=== PATIENT | female | born 1995 | race American Indian/Alaskan Native ===

== ENCOUNTER 2018-02-27 16:37 | Emergency (ER) | payer OTHER ==
[2018-02-27 17:15] LABS: BASO % 0.2 % (0.0-1.0); EOS # 0.1 10^3/uL (0.0-0.50); EOS % 0.6 % (0.0-3.0); HEMATOCRIT 38.2 % (36.0-47.0); HEMOGLOBIN 12.7 g/dl (12.0-15.5); IMMATURE GRANULOCYTE % 0.2 % (0-3.0); LYMPH # 1.8 10^3/uL (1.5-6.5); LYMPH % 21.4 % (24.0-44.0); MEAN CORPUSCULAR HEMOGLOBIN 27.8 pg (27.0-33.0); MEAN CORPUSCULAR HGB CONC 33.2 g/dl (32.0-36.5); MEAN CORPUSCULAR VOLUME 83.6 fl (80.0-96.0); MONO # 0.4 10^3/uL (0.0-0.8); MONO % 5.3 % (0.0-5.0); NEUTROPHILS # 5.9 10^3/uL (1.8-7.7); NEUTROPHILS % 72.3 % (36.0-66.0); PLATELET COUNT, AUTOMATED 266 10^3/uL (150-450); RED BLOOD COUNT 4.57 10^6/uL (4.00-5.40); RED CELL DISTRIBUTION WIDTH 13.2 % (11.5-14.5); WHITE BLOOD COUNT 8.2 10^3/uL (4.0-10.0)
[2018-02-27 17:52] LABS: ANION GAP 7 MEQ/L (8-16); BLOOD UREA NITROGEN 7 MG/DL (7-18); CALCIUM LEVEL 8.8 MG/DL (8.5-10.1); CARBON DIOXIDE LEVEL 25 MEQ/L (21-32); CHLORIDE LEVEL 106 MEQ/L (98-107); CREATININE FOR GFR 0.65 MG/DL (0.55-1.30); GLOMERULAR FILTRATION RATE > 60.0 (>60); GLUCOSE, FASTING 81 MG/DL (70-100); HCG, SERUM QUANTITATIVE 122163 MIU/ML; POTASSIUM SERUM 3.8 MEQ/L (3.5-5.1); SODIUM LEVEL 138 MEQ/L (136-145)
[2018-02-27 18:36] LABS: AMORPHOUS SEDIMENT RFX SMALL (NEGATIVE); KETONE, URINE AUTO RFX TRACE mg/dL (NEGATIVE); LEUKOCYTE ESTERASE UR AUTO RFX NEGATIVE (NEGATIVE); MUCUS, URINE RFX SMALL (NEGATIVE); NITRITE, URINE AUTO RFX NEGATIVE (NEGATIVE); RBC, URINE AUTO RFX 3 /HPF (0-3); SPECIFIC GRAVITY UR AUTO RFX 1.017 (1.002-1.035); SQUAM EPITHELIAL CELL UR AURFX 2 /HPF (0-6); WBC, URINE AUTO RFX 2 /HPF (0-3)
[2018-02-27 21:13] LABS: CHLAMYDIA DNA AMPLIFICATION NEGATIVE (NEGATIVE); GC DNA AMPLIFICATION NEGATIVE (NEGATIVE)
== END 2018-02-27 20:01 | disposition home or self-care (01) ==
LOC: M ED 16:37
DX: O20.9 Hemorrhage in early pregnancy, unspecified (principal); O23.591 Infection of other part of genital tract in pregnancy, first trimester; Z3A.09 9 weeks gestation of pregnancy
CPT/HCPCS: 76801

== ENCOUNTER 2018-04-14 18:18 | Emergency (ER) | payer OTHER ==
[~2018-04-14] VITALS: Ht 160 cm; Wt 85.5 kg
[~2018-04-14 18:18] MED LIST: METR1GEL7 PV; PREN200C PO; RANI15TA PO; VITA200016 PO; ZOFR4TAB16 PO
[2018-04-14] MEDS ORDERED: ACETAMINOPHEN 325 MG TAB PO ONE (18:45)
[2018-04-14 20:02] VITALS: BP 117/72
== END 2018-04-14 20:04 | disposition home or self-care (01) ==
LOC: M ED 18:18
DX: S20.20XA Contusion of thorax, unspecified, initial encounter (principal); W19.XXXA Unspecified fall, initial encounter; Y92.019 Unspecified place in single-family (private) house as the place of occurrence of the external cause

== ENCOUNTER 2018-06-27 17:22 | Emergency (ER) | payer OTHER ==
[~2018-06-27] VITALS: Ht 162.6 cm; Wt 91.4 kg
[2018-06-27] MEDS ORDERED: ZOLO50TA PO (17:26)
[2018-06-27] MEDS ORDERED: MECL-68 PO (19:26)
[2018-06-27 19:29] VITALS: BP 105/65
[2018-06-27] MEDS ORDERED: MECLIZINE 25 MG TABLET PO ONE (19:30)
== END 2018-06-27 19:35 | disposition home or self-care (01) ==
LOC: M ED 17:22
DX: O99.352 Diseases of the nervous system complicating pregnancy, second trimester (principal); R42 Dizziness and giddiness; R11.0 Nausea; G43.909 Migraine, unspecified, not intractable, without status migrainosus; O99.342 Other mental disorders complicating pregnancy, second trimester; F32.9 Major depressive disorder, single episode, unspecified; Z88.0 Allergy status to penicillin; Z79.899 Other long term (current) drug therapy; Z3A.26 26 weeks gestation of pregnancy

== ENCOUNTER 2018-10-11 15:29 | Inpatient (IN) | payer OTHER ==
[~2018-10-11] VITALS: Ht 162.6 cm; Wt 103.0 kg
[~2018-10-11 15:29] MED LIST changes: +MECL-68 PO; +ZOLO50TA PO
[2018-10-11] MEDS ORDERED: PRENTAB9 PO (15:50)
[2018-10-11 16:02] VITALS: BP 90/55
[2018-10-11] MEDS: miSOPROStol 50 MCG 1/2 TAB (S0191) SL SCH ×2 (17:27→21:32)
[2018-10-11 17:33] LABS: HEMOGLOBIN 11.6 g/dl (12.0-15.5); MEAN CORPUSCULAR HEMOGLOBIN 27.6 pg (27.0-33.0); MEAN CORPUSCULAR HGB CONC 32.2 g/dl (32.0-36.5); MEAN CORPUSCULAR VOLUME 85.5 fl (80.0-96.0); PLATELET COUNT, AUTOMATED 181 10^3/uL (150-450); RED BLOOD COUNT 4.21 10^6/uL (4.00-5.40); WHITE BLOOD COUNT 7.1 10^3/uL (4.0-10.0)
--- NOTE | 2018-10-11 18:27 | HPE ---
DATE OF ADMISSION: 10/11/2018 HISTORY: A 23-year-old G1, P0 female at 41-2/7 weeks gestation by last menstrual period (LMP) plus ultrasound, estimated date of confinement (EDC) of 10/02/2018 presents for labor induction. She has no complications. COURSE: Patient's care has been through [facility]. She has had no complications. MEDICAL HISTORY: Noncontributory. SURGICAL HISTORY: Noncontributory. ALLERGIES: PENICILLIN. SOCIAL HISTORY: The patient denies cigarettes, alcohol, or drug use. She is in the . She and her are of descent. FAMILY HISTORY: Noncontributory. PHYSICAL EXAMINATION: Blood pressure is 90/55, pulse 88, respiratory rate 18, afebrile. She is in no apparent distress. Head and neck exam normal. Lungs clear. Heart regular rate and rhythm. Abdomen nontender, gravid. heart tones category 1, contractions irregular. Sterile vaginal exam: 1 cm, 80%, -2, posterior, soft, vertex. Extremities: Nontender. Blood type is O positive. Hepatitis B negative. RPR nonreactive. Normal diabetes screen. GBS negative. ASSESSMENT: A 23-year-old G1 at 41-2/7 weeks gestational presents for labor in duction. PLAN: Patient was admitted on 10/11/2018. Risks of induction were discussed.
[2018-10-11 18:40] VITALS: BP 102/51
[2018-10-11 19:42] VITALS: BP 100/56
[2018-10-11 22:34] VITALS: BP 113/64
[2018-10-12] VITALS (44 sets, daily range): BP systolic 72–259; BP diastolic 35–168
[2018-10-12] MEDS ORDERED: BUTORPHANOL 2 MG/ML INJ (J0595) IV ONE (01:45)
[2018-10-12] MEDS ORDERED: PROMETHAZINE INJ 25 MG/ML VIAL (J2550) IV ONE (01:45)
[2018-10-12] MEDS ORDERED: PROMETHAZINE INJ 25 MG/ML VIAL (J2550) As Ordered ONE (01:46)
[2018-10-12] MEDS ORDERED: BUTORPHANOL 2 MG/ML INJ (J0595) As Ordered ONE (01:47)
[2018-10-12] MEDS: miSOPROStol 50 MCG 1/2 TAB (S0191) SL SCH (01:51)
[2018-10-12] MEDS ORDERED: LR 1,000 ML IV ONE (06:00)
[2018-10-12] MEDS ORDERED: FENTANYL 2MCG/ML ROPIVACAINE 0.2% IN 0.9% NACL 100ML IVBAG As Ordered ONE (06:16)
[2018-10-12] MEDS ORDERED: LACTATED RINGER'S 1000 ML IV PRN (06:21)
[2018-10-12] MEDS ORDERED: diphenhydrAMINE INJ 50MG/ML VIAL (J1200) IV PRN ×2 (06:21→16:26)
[2018-10-12] MEDS ORDERED: NALOXONE INJ 0.4 MG/1 ML VIAL (J2310) IV PRN ×3 (06:21→16:26)
[2018-10-12] MEDS ORDERED: ONDANSETRON 4MG/2ML VIAL (J2405) IV PRN ×3 (06:21→17:45)
[2018-10-12] MEDS ORDERED: EPIDURAL/PCA KEYS XX PRN (06:21)
[2018-10-12] MEDS ORDERED: EPIDURAL COMMENT XX SCH (06:21)
[2018-10-12] MEDS ORDERED: REFRIGERATOR IV KEYS XX PRN (06:21)
[2018-10-12] MEDS ORDERED: FENTANYL/ROPIVACAINE/NACL BAG 100 ML EPIDURAL SCH (06:21)
[2018-10-12] MEDS: LR 1,000 ML IV SCH ×3 (06:48→10:45)
[2018-10-12] MEDS ORDERED: OXYTOCIN 30 UNITS IN 0.9% NaCl 500ML IV BAG (J2590) As Ordered ONE ×2 (07:23→14:50)
[2018-10-12] MEDS: ePHEDrine SULFATE 25 MG/5 ML(5MG/ML) SYRINGE IV PRN ×3 (07:51→08:05)
--- NOTE | 2018-10-12 08:50 | NUR ---
[facility] L&D Intrapartum Progress Note S: Received report from Dr. Haynes. Cassy is a 23 y/o G1 at 41+3 weeks gestation via L/1TUS. Admission on 11 October for late term IOL. was c/b depression; size >dates, obesity, and excessive weight gain. She is laying in lateral position with FRANCISCA infusing. She denies pain/pressure with ctx since epidural placement. Spouse is present for support. O: VSS/afebrile, normotensive A&Ox3, NAD ABD: Gravid; relaxed uterine resting tone EXT: trace edema, neg homans FHR: 145 bl, moderate variability, + accelerations, no decelerations. TOCO: ctx q3-4 min, mod intensity via palp, relaxed resting tone SCE: 7/100/-1, cephalic vtx, narrow ischial spines noted; BBOW A/P: Cassy is a 23-year-old G1, P0 female at 41-3/7 weeks gestation by last menstrual period (LMP) plus ultrasound, estimated date of confinement (EDC) of 10/02/2018, late term IOL s/p 3 doses of misoprostil. Now in active phase labor. CAT I FHR. FRANCISCA infusing for labor anesthesia. Amniotomy performed for further augmentation and moderate amount of fluid with light meconium present. Safe to proceed.
--- NOTE | 2018-10-12 12:30 | NUR ---
[facility] L&D Intrapartum Progress Note S: Cassy is a 23 y/o G1 at 41+3 weeks gestation via L/1TUS. Admission on 11 October for late term IOL. was c/b depression; size >dates, obesity, and excessive weight gain. She is laying in lateral position with FRANCISCA infusing. She denies pain but does report feeling some vaginal pressure. Spouse is present for support. O: VSS/afebrile, normotensive A&Ox3, NAD ABD: Gravid; relaxed uterine resting tone EXT: trace edema, neg homans FHR: 145 bl, moderate variability, + accelerations, rare/intermittent variable decelerations. TOCO: ctx q2-3.5 min, mod intensity via palp, relaxed resting tone SCE: 10/100/0, cephalic vtx, LOP presentation, light mec present A/P: Cassy is a 23-year-old G1, P0 female at 41-3/7 weeks gestation by last menstrual period (LMP) plus ultrasound, estimated date of confinement (EDC) of 10/02/2018, late term IOL s/p 3 doses of misoprostil. Active phase labor. CAT I FHR; occasional CAT II for variable decelerations. FRANCISCA infusing for labor anesthesia. Good cervical change since last examination. Will reposition to HF/squatting, alternating with peanut ball for 1 hour to facilitate passive descent and internal rotation. Safe to proceed.
--- NOTE | 2018-10-12 14:17 | NUR ---
[facility] L&D Intrapartum Progress Note S: Cassy is a 23 y/o G1 at 41+3 weeks gestation via L/1TUS. Admission on 11 October for late term IOL. was c/b depression; size >dates, obesity, and excessive weight gain. She is actively pushing in a semi-squatting/SF position. Spouse is present for support. O: VSS/temp 99.8 A&Ox3, NAD ABD: Gravid; relaxed uterine resting tone EXT: trace edema, neg homans FHR: 155 bl, moderate variability, + accelerations, variable decelerations during ctx while pushing TOCO: ctx q2-4 min, mod intensity via palp, relaxed resting tone SCE: 10/100/+1 cephalic vtx, OA presentation, moderate mec present A/P: Cassy is a 23-year-old G1, P0 female at 41-3/7 weeks gestation by last menstrual period (LMP) plus ultrasound, estimated date of confinement (EDC) of 10/02/2018, late term IOL s/p 3 doses of misoprostil. Second stage labor actively pushing with fair maternal effort. CAT II FHR for variable decelerations, mod variability, + accelerations. descent noted since onset of active pushing (about 40minutes ago). Will continue active pushing. Safe to proceed.
[2018-10-12] MEDS ORDERED: OXYTOCIN DRIP 30 UNITS in APPROPRIATE DILUENT 1 EA IV SCH ×2 (15:00→17:18)
[2018-10-12] MEDS ORDERED: BICITRA 30ML SOLN UDC PO ONE (15:15)
[2018-10-12] MEDS ORDERED: AZITHROMYCIN INJ 500 MG, VIAL MATE ADAPTER 1 EACH in D5W 250 ML IV ONE (15:30)
--- NOTE | 2018-10-12 15:44 | IPNPDOC ---
Text Note Date of Service The patient was seen on 10/12/18. NOTE Called by MAJ Carey in regards to Ms. Lopez. She's a 23 yo at 41+3 weeks gestation undergoing an IOL for late term gestation. She progressed to C/C/O at ~1230, and has been pushing for the last 2 hours with minimal descent. On my exam the head is at +1 station. Cassy is exhausted and does not feel able to push anymore. I recommended section for arrest of descent. We discussed all risks of surgery to include, but not limited to, bleeding requiring blood transfusion, risk of infection, risk of injury to bowel, bladder, or other structures which could require additional surgery, risk of needing a hysterectomy as a life saving maneuver to control bleeding, risk of injury to baby, and even risk of and/or maternal . She verbalized understanding of these risks and elected to proceed with c section. Consent form signed. Ancef and Azithromycin for infection prophylaxis. OR and anesthesia notified. Will proceed urgently. Penelope Gill DO VS,Robert, I+O VS, Robert, I+O Laboratory Tests 10/11/18 16:34 Red Blood Count 4.21, Mean Corpuscular Volume 85.5, Mean Corpuscular Hemoglobin 27.6, Mean Corpuscular Hemoglobin Concent 32.2, Red Cell Distribution Width 13.2 Vital Signs Date Time Temp Pulse Resp B/P (MAP) Pulse Ox O2 Delivery O2 Flow Rate FiO2 10/12/18 15:16 155 20 116/79 (91) 10/12/18 14:45 99.2 I&O- Last 24 Hours up to 6 AM 10/12/18 06:00 Intake Total 600 ml Balance 600 ml PENELOPE GILL DO Oct 12, 2018 15:43
[2018-10-12] MEDS ORDERED: METOCLOPRAMIDE INJ 10MG/2ML VIAL (J2765) IV PRN ×2 (16:26→17:45)
[2018-10-12] MEDS ORDERED: NALBUPHINE HCL 10 MG/ML AMP (J2300) IV PRN (16:26)
[2018-10-12] MEDS ORDERED: OXYTOCIN INJ 10 UNITS/ML VIAL (J2590) As Ordered ONE (16:30)
[2018-10-12] MEDS ORDERED: ONDANSETRON 4MG/2ML VIAL (J2405) As Ordered ONE (16:30)
[2018-10-12] MEDS ORDERED: SODIUM BICARBONATE 8.4% INJ 50MEQ 50 ML VIAL As Ordered ONE (16:30)
[2018-10-12] MEDS ORDERED: MORPHINE PRES-FREE INJ 10 MG/10 ML VIAL (J2274) As Ordered ONE (16:30)
[2018-10-12] MEDS ORDERED: dexameTHASONE 4 MG/ML 1ML VIAL (J1100) As Ordered ONE (16:30)
[2018-10-12] MEDS ORDERED: KETOROLAC 60 MG/2 ML VIAL (J1885) As Ordered ONE (16:30)
[2018-10-12] MEDS ORDERED: PHENYLephrine HCL 500 MCG/5 ML (100MCG/ML) SYRINGE (J2370) As Ordered ONE (17:18)
[2018-10-12 17:30] LABS: CORD GAS HCO3 A 20.1 MEQ/L; CORD GAS O2 SAT A 35.3 %; CORD GAS PCO2 A 46.4 mmHg; CORD GAS PH A 7.254 UNITS; CORD GAS PO2 A 20.9 mmHg; CORD GAS SBC A 17.7 MEQ/L; CORD GAS TCO2 A 21.5 MEQ/L
[2018-10-12] MEDS ORDERED: PROMETHAZINE 25 MG TAB PO PRN (17:30)
[2018-10-12] MEDS ORDERED: MEASLES,MUMPS,RUBELLA VACCINE INJ (MMR-II) (90707) SC SCH (17:30)
[2018-10-12] MEDS ORDERED: RHOGAM 300 MCG (1500 IU) INJ (J2790) IM SCH (17:30)
[2018-10-12 17:32] LABS: CORD GAS HCO3 V 20.8 MEQ/L; CORD GAS PCO2 V 41.3 mmHg; CORD GAS PH V 7.32 UNITS; CORD GAS PO2 V 39.8 mmHg; CORD GAS TCO2 V 22.1 MEQ/L
[2018-10-12] MEDS ORDERED: MEPERIDINE INJ 25 MG/ML VIAL (J2175) As Ordered ONE (17:35)
[2018-10-12] MEDS ORDERED: LR 1,000 ML IV SCH (17:45)
[2018-10-12] MEDS ORDERED: fentaNYL 100 MCG/2 ML INJECTION (J3010) IV PRN (17:45)
[2018-10-12] MEDS ORDERED: PERCOCET 5MG/325MG TAB PO PRN (17:45)
[2018-10-12] MEDS ORDERED: MEPERIDINE INJ 25 MG/ML VIAL (J2175) IV PRN (18:00)
[2018-10-12] MEDS ORDERED: miSOPROStol 200 MCG TAB (S0191) PR ONE (18:00)
[2018-10-12] MEDS ORDERED: METHYLERGONOVINE MALEATE 0.2 MG/ML VIAL (J2210) IM STA (18:15)
[2018-10-12] MEDS: KETOROLAC 30 MG/ML VIAL (J1885) IV SCH (23:00)
[2018-10-13 02:17] VITALS: BP 103/59
[2018-10-13] MEDS: KETOROLAC 30 MG/ML VIAL (J1885) IV SCH ×2 (05:15→11:38)
[2018-10-13 06:28] VITALS: BP 109/50
[2018-10-13 07:16] LABS: MEAN CORPUSCULAR HEMOGLOBIN 27.7 pg (27.0-33.0); MEAN CORPUSCULAR HGB CONC 32.2 g/dl (32.0-36.5); MEAN CORPUSCULAR VOLUME 86.1 fl (80.0-96.0); PLATELET COUNT, AUTOMATED 141 10^3/uL (150-450); RED BLOOD COUNT 2.67 10^6/uL (4.00-5.40); WHITE BLOOD COUNT 17.6 10^3/uL (4.0-10.0)
[2018-10-13 07:28] LABS: HEMOGLOBIN 7.4 g/dl (12.0-15.5)
[2018-10-13] MEDS: PRENATAL VITAMINS CHEWABLE TABLET PO SCH (07:49)
[2018-10-13] MEDS: PERCOCET 5MG/325MG TAB PO PRN ×3 (08:07→20:54)
--- NOTE | 2018-10-13 08:45 | IPNPDOC ---
Progress Note Date of Service: Oct 13, 2018 Day#: 1 Progress Note SUBJECT: 23yo s/p 1LTCS for arrest. Doing well. Pain controlled with pain meds. She reports dizziness with OOB and is unable to make it to the bathroom. She generally feels weak. Denies flatus but is tolerating PO well. Denies N&V. Lochia minimal. Denies CP, SOB, leg pain. OBJECTIVE: VITAL SIGNS: Within normal limits, afebrile. Alert and oriented times three. Breath sounds clear to auscultation. Heart rate: Regular rate and rhythm, no murmurs, rubs or gallops. Abdomen: Fundus firm at U-2. Soft, NTTP. Minimal lochia. ASSESSMENT: 23yo PPD#1 s/p 1LTCS c/o dizziness in setting of acute blood loss anemia PLAN: 1. Acute blood loss anemia: Hb 11.6 --> 7.3. Sx. Will transfuse 1u PRBC. Rpt CBC 4 hrs post transfusion. 2. Routine postop care 3. Encourage ambulation VS, I&O, 24H, [facility] Vital Signs/I&O Vital Signs Date Time Temp Pulse Resp B/P (MAP) Pulse Ox O2 Delivery O2 Flow Rate FiO2 10/13/18 08:07 20 10/13/18 06:28 97.9 93 109/50 (69) 96 I&O- Last 24 Hours up to 6 AM 10/13/18 05:59 Intake Total 2930 ml Output Total 3375 ml Balance -445 ml Laboratory Data 24H LABS Laboratory Tests 2 10/12/18 17:14: Cord Venous Blood pH 7.320, Cord Venous Blood PCO2 41.3, Cord Venous Blood PO2 39.8, Cord Venous Blood HCO3 20.8, Cord Venous Blood Total CO2 22.1, Cord Venous Base Excess (Actual) -5.0, Cord Venous Base Excess (Standard) 20.0, Cord Venous Blood Oxygen Saturation 79.0 10/12/18 17:15: Cord Arterial Blood pH 7.254, Cord Arterial Blood PCO2 46.4, Cord Arterial Blood PO2 20.9, Cord Arterial Blood HCO3 20.1, Cord Arterial Blood Total CO2 21.5, Cord Arterial Blood Base Excess -7.0, Cord Arterial Base Excess (Standard 17.7, Cord Arterial Bld Oxygen Saturation 35.3 10/13/18 06:41: Nucleated Red Blood Cells % (auto) 0.0 CBC/BMP Laboratory Tests 10/13/18 06:41 Red Blood Count 2.67 L, Mean Corpuscular Volume 86.1, Mean Corpuscular Hemoglobin 27.7, Mean Corpuscular Hemoglobin Concent 32.2, Red Cell Distribution Width 13.7 LEXIE SANTANA MD Oct 13, 2018 08:45
[2018-10-13] MEDS ORDERED: LIDOCAINE 2% W/EPIN INJ 20ML **PRES FREE As Ordered ONE (09:01)
[2018-10-13 14:00] VITALS: BP 90/50
[2018-10-13 15:42] LABS: HEMATOCRIT 24.1 % (36.0-47.0); HEMOGLOBIN 7.9 g/dl (12.0-15.5); MEAN CORPUSCULAR HEMOGLOBIN 28.4 pg (27.0-33.0); MEAN CORPUSCULAR HGB CONC 32.8 g/dl (32.0-36.5); MEAN CORPUSCULAR VOLUME 86.7 fl (80.0-96.0); PLATELET COUNT, AUTOMATED 140 10^3/uL (150-450); RED BLOOD COUNT 2.78 10^6/uL (4.00-5.40); WHITE BLOOD COUNT 16.1 10^3/uL (4.0-10.0)
[2018-10-13 18:02] VITALS: BP 90/66
[2018-10-13] MEDS: IBUPROFEN 800 MG TAB PO SCH (19:50)
[2018-10-13 22:00] VITALS: BP 103/53
[2018-10-14] MEDS: IBUPROFEN 800 MG TAB PO SCH ×3 (02:59→19:00)
[2018-10-14 05:55] VITALS: BP 90/53
[2018-10-14 07:13] LABS: HEMATOCRIT 22.6 % (36.0-47.0); HEMOGLOBIN 7.4 g/dl (12.0-15.5); MEAN CORPUSCULAR HEMOGLOBIN 27.4 pg (27.0-33.0); MEAN CORPUSCULAR HGB CONC 32.7 g/dl (32.0-36.5); MEAN CORPUSCULAR VOLUME 83.7 fl (80.0-96.0); PLATELET COUNT, AUTOMATED 167 10^3/uL (150-450); WHITE BLOOD COUNT 14.7 10^3/uL (4.0-10.0)
--- NOTE | 2018-10-14 07:35 | NUR ---
POD#2 S: Doing well w/o complaints. +voids, + ambulation, pain well controlled. O: vss, AF gen: well appearing, NAD ab: soft, nttp, ff incision: c/d/I ext: neg calf tenderness 14.7>--7.4/22.6--<167 A/P: POD#2 s/p 1LTCS c/b received 1unit PRBC - recovering in stable condition -continue routine / postop care -may consider additional unit is symptomatic anemia -discharge plans for tomorrow Carol Ann Castaneda MD
--- NOTE | 2018-10-14 10:09 | IPNPDOC ---
Progress Note Date of Service: Oct 14, 2018 Progress Note Patient seen this AM. Cassy overall is doing well, but she still feels lightheaded and weak with ambulation. HR normal and UO good. H/H stable, but still low. I recommended transfusion of one more unit of PRBCs for symptomatic anemia. If remains stable will likely discharge home tomorrow. All patient questions answered. DO Jairo VS, I&O, 24H, [facility] Vital Signs/I&O Vital Signs Date Time Temp Pulse Resp B/P (MAP) Pulse Ox O2 Delivery O2 Flow Rate FiO2 10/14/18 05:55 97.9 82 18 90/53 (65) 10/13/18 22:00 97 I&O- Last 24 Hours up to 6 AM 10/14/18 06:00 Output Total 2300 ml Balance -2300 ml Laboratory Data 24H LABS Laboratory Tests 2 10/13/18 15:09: Nucleated Red Blood Cells % (auto) 0.0 10/14/18 06:40: Nucleated Red Blood Cells % (auto) 0.0 CBC/BMP Laboratory Tests 10/13/18 15:09 Red Blood Count 2.78 L, Mean Corpuscular Volume 86.7, Mean Corpuscular Hemoglobin 28.4, Mean Corpuscular Hemoglobin Concent 32.8, Red Cell Distribution Width 13.6 10/14/18 06:40 Red Blood Count 2.70 L, Mean Corpuscular Volume 83.7, Mean Corpuscular Hemoglobin 27.4, Mean Corpuscular Hemoglobin Concent 32.7, Red Cell Distribution Width 14.1 PENELOPE GUY DO Oct 14, 2018 10:09
[2018-10-14] MEDS: PRENATAL VITAMINS CHEWABLE TABLET PO SCH (11:11)
[2018-10-14] MEDS: PERCOCET 5MG/325MG TAB PO PRN ×2 (11:15→18:42)
--- NOTE | 2018-10-14 17:12 | RO ---
DATE OF PROCEDURE: 10/12/2018 PREPROCEDURE DIAGNOSIS: Arrest of descent. POSTPROCEDURE DIAGNOSIS: Arrest of descent. PROCEDURE: Primary low transverse section. SURGEON: Dr. Dorian Gill RUBBER MIXER: Dr. Davide Maki whose assistance with exposure, retraction, visualization, and delivery of the infant was vital. ANESTHESIA: Epidural. FLUIDS: 2200 mL of lactated Ringer's. URINE OUTPUT: 250 mL. ESTIMATED BLOOD LOSS: 1500 mL. COMPLICATIONS: None. ANTIBIOTICS: 2 grams of Ancef and 500 mg of azithromycin. OPERATIVE FINDINGS: Viable male fetus, found and delivered in left occiput transverse (LOT) position with a footling cord. scores were 9 and 10. weight was 8 pounds 5 ounces or 3760 grams. DETAILED PROCEDURE DESCRIPTION: The risks, benefits, indications, and alternatives of the procedure were reviewed with the patient and informed consent was obtained. The patient was taken to the operating room where epidural anesthesia was found to be adequate. She was then prepped and draped in the usual sterile fashion in the dorsal supine position with a leftward tilt. A surgical time-out was then performed in which the patient's identify and planned procedure were verified with the operative team. A Pfannenstiel skin incision was then made with a scalpel and carried through to the underlying layer of fascia using the Bovie. The fascia was incised in the midline and the incision was extended laterally with Foreman scissors. The superior aspect of the fascial incision was grasped with Estela clamps, elevated, and the underlying rectus muscles were dissected off with a scalpel. Attention was then turned to the inferior aspect of this incision, which in a similar fashion was grasped, tented up with Estela clamps, and the rectus muscles were dissected off with the Foreman scissors. The rectus muscles were then in the midline. The peritoneum was identified and entered digitally. The peritoneal incision was then extended horizontally and superiorly with good visualization of the bladder. A bladder blade was then inserted into the abdomen. The vesicouterine peritoneum was then identified and entered sharply with the scalpel. This incision was then extended laterally and the bladder flap was created digitally. Next, the lower uterine segment was incised in a transverse fashion with a scalpel. The uterine incision was then extended manually. Light meconium-stained fluid was noted upon entry into the uterus. The was found in the cephalic LOT position. The 's head was then delivered atraumatically through the hysterotomy without difficulty, followed easily by the remainder of the body. The 's nose and mouth were suctioned with a bulb syringe, and the cord was doubly clamped and cut. The was handed off to the awaiting pediatricians. Cord segment was obtained for blood gases. The placenta was then removed manually. The uterus was exteriorized and cleared of all clots and debris. The uterine incision was then repaired with #0 Monocryl suture in a running locked fashion. A second layer of #0 Monocryl was then used to imbricate the hysterotomy in a vertical fashion. The uterus was significantly atonic initially and Pitocin was doubled and 0.2 mg of IM Methergine was given and tone improved. Inspection of the hysterotomy revealed excellent hemostasis. The posterior cul-de-sac was then irrigated to good effect. The uterus was then returned to the abdomen, and there was noted to be scant oozing, bleeding in the middle of the hysterotomy, which was closed with multiple figure-of-8 sutures of #3-0 Vicryl. Excellent hemostasis was assured then. The paracolic gutter was then inspected and cleared of all clots and debris. The bladder blade was removed from the abdomen. The peritoneum was then closed with #3-0 Vicryl suture in a running fashion. The fascia was then closed with #0 Vicryl suture in a running fashion. The subcutaneous fat was closed with #3-0 Vicryl suture in a running fashion. The skin was then closed with #4-0 Monocryl suture in a subcuticular fashion. The incision was then dressed with Steri-Strips and a pressure dressing was applied. At the completion of the case, a bimanual exam was performed, and the uterus was initially boggy. With massage, the uterus clamped down well, but there was additional blood loss after uterine massage. 1000 mcg of Cytotec was then placed per rectum. The uterus was noted to have excellent tone then. The patient tolerated the procedure well. Sponge, instrument, and needle counts were correct times three. The patient was taken to the post-anesthesia care unit (PACU) in stable condition. OZIEL
[2018-10-14 18:00] VITALS: BP 95/52
[2018-10-14 20:33] VITALS: BP 107/58
[2018-10-15] MEDS: PERCOCET 5MG/325MG TAB PO PRN ×2 (00:11→10:01)
[2018-10-15] MEDS: IBUPROFEN 800 MG TAB PO SCH ×2 (02:40→11:00)
[2018-10-15 06:47] VITALS: BP 110/53
[2018-10-15] MEDS ORDERED: PERCOCET PO (07:05)
[2018-10-15] MEDS ORDERED: IBUP80TA PO (07:05)
--- NOTE | 2018-10-15 07:06 | DS.PDOC ---
Discharge Summary General Date of Admission Oct 11, 2018 at 15:29 Date of Discharge October 15, 2018 Discharge Summary HOSPITAL COURSE: Ms. Lopez is a 23 yo G1 now P1 who underwent an uncomplicated PLTCS on 12Oct2018 for arrest of descent. EBL was 1500ml and she received 2U PRBCs for symptomatic anemia and had improved symptoms. Her course has otherwise been unremarkable. On her day of discharge she met all appropriate discharge criteria. She was ambulating, voiding, tolerating a regular diet, had minimal lochia, and her pain was well controlled with PO pain medications. DISCHARGE MEDICATIONS: Please see below. ALLERGIES: Please see below. PHYSICAL EXAMINATION ON DISCHARGE: VITAL SIGNS: Please see below. GENERAL: AAOX3, laying in bed, NAD, pleasant and conversant ABDOMINAL EXAMINATION: Abdomen soft, nondistended. No tenderness to palpation. Fundus firm at U-2. No fundal tenderness. Incision well appearing and steri strips still in place. Incision clean/dry/intact. EXTREMITIES: No edema PSYCHIATRIC EXAMINATION: Affect appropriate LABORATORY DATA: Please see below. ACTIVITY: Pelvic rest for 6 weeks. No heavy lifting for 6 weeks DIET: Regular DISCHARGE PLAN: Discharge home DISPOSITION: .Discharge home on 15Oct2018 DISCHARGE INSTRUCTIONS: 1. Pelvic rest for 6weeks 2. No heavy lifting for 6 weeks ITEMS TO FOLLOWUP ON ON OUTPATIENT: 1. 2 week incision check DISCHARGE CONDITION: Stable TIME SPENT ON DISCHARGE: Greater than 20 minutes. Penelope Gill DO Vital Signs/I&Os Vital Signs Date Time Temp Pulse Resp B/P (MAP) Pulse Ox O2 Delivery O2 Flow Rate FiO2 10/15/18 06:47 98.2 84 18 110/53 (72) 10/14/18 18:00 98 Discharge Medications Scheduled Ibuprofen (Ibuprofen) 800 Mg Tablet, 800 MG PO Q8H No.137/Iron/Folic Acd ( Vitamin Tablet) 1 Each Tablet, 1 TAB PO DAILY, (Reported) Sertraline Hcl (Zoloft) 50 Mg Tablet, 50 MG PO DAILY, (Reported) Scheduled PRN Oxycodone/Acetaminophen (Oxycodone-Acetaminophen 5-325) 1 Each Tablet, 1 TAB PO Q4HP PRN for MILD PAIN (PS 1-4) Oxycodone/Acetaminophen (Oxycodone-Acetaminophen 5-325) 1 Each Tablet, 2 TAB PO Q4HP PRN for MODERATE/SEVERE PAIN (PS 5-10) Allergies Coded Allergies: No Known Drug Allergies (Verified Allergy, Unknown, 10/12/18) PENELOPE GILL DO Oct 15, 2018 07:06
[2018-10-15] MEDS: PRENATAL VITAMINS CHEWABLE TABLET PO SCH (09:58)
== END 2018-10-15 13:45 | disposition home or self-care (01) | DRG 772 ==
LOC: M LDI 15:29 → M OBS 10-12 19:20
PROVIDERS: ADMIT Obstetrics & Gynecology; ATTEND Obstetrics & Gynecology
PROC: 3E033VJ Introduction of Other Hormone into Peripheral Vein, Percutaneous Approach (ICD-10-PCS; 2018-10-11)
PROC: 10D00Z1 Extraction of Products of Conception, Low, Open Approach (ICD-10-PCS; principal; 2018-10-12 16:14)
PROC: 30233N1 Transfusion of Nonautologous Red Blood Cells into Peripheral Vein, Percutaneous Approach (ICD-10-PCS; 2018-10-13)
DX: O48.0 Post-term pregnancy (principal); D62 Acute posthemorrhagic anemia; O32.4XX0 Maternal care for high head at term, not applicable or unspecified; Z37.0 Single live birth; Z3A.41 41 weeks gestation of pregnancy; O99.03 Anemia complicating the puerperium

== ENCOUNTER 2018-11-03 21:17 | Emergency (ER) | payer OTHER ==
[~2018-11-03] VITALS: Ht 162.6 cm; Wt 93.6 kg
[~2018-11-03 21:17] MED LIST changes: +IBUP80TA PO; +PERCOCET PO; +PRENTAB9 PO
[2018-11-03 21:18] VITALS: BP 117/64
[2018-11-03] MEDS ORDERED: ACET-683 PO (21:34)
[2018-11-03 22:07] LABS: BASO % 0.4 % (0.0-1.0); EOS # 0.4 10^3/uL (0.0-0.50); EOS % 5.2 % (0.0-3.0); HEMATOCRIT 32.1 % (36.0-47.0); HEMOGLOBIN 10.2 g/dl (12.0-15.5); LYMPH # 1.4 10^3/uL (1.5-6.5); MEAN CORPUSCULAR HGB CONC 31.8 g/dl (32.0-36.5); MEAN CORPUSCULAR VOLUME 81.7 fl (80.0-96.0); MONO # 0.6 10^3/uL (0.0-0.8); MONO % 7.8 % (0.0-5.0); NEUTROPHILS # 5.5 10^3/uL (1.8-7.7); NEUTROPHILS % 69.5 % (36.0-66.0); PLATELET COUNT, AUTOMATED 284 10^3/uL (150-450); RED BLOOD COUNT 3.93 10^6/uL (4.00-5.40); WHITE BLOOD COUNT 7.9 10^3/uL (4.0-10.0)
[2018-11-03 22:28] LABS: ALT/SGPT 27 U/L (12-78); BILIRUBIN,TOTAL 0.4 MG/DL (0.2-1.0); BLOOD UREA NITROGEN 10 MG/DL (7-18); CALCIUM LEVEL 8.2 MG/DL (8.5-10.1); CARBON DIOXIDE LEVEL 25 MEQ/L (21-32); CHLORIDE LEVEL 107 MEQ/L (98-107); CREATININE FOR GFR 0.85 MG/DL (0.55-1.30); GLOMERULAR FILTRATION RATE > 60.0 (>60); GLUCOSE, FASTING 107 MG/DL (70-100); POTASSIUM SERUM 4.2 MEQ/L (3.5-5.1); SODIUM LEVEL 139 MEQ/L (136-145); TOTAL PROTEIN 6.8 GM/DL (6.4-8.2)
[2018-11-03] MEDS ORDERED: NS 1,000 ML IV ONE (22:30)
[2018-11-03] MEDS ORDERED: CLINDAMYCIN 600 MG in APPROPRIATE DILUENT 1 EA IV ONE (22:30)
[2018-11-04] MEDS ORDERED: CLIN150C14 PO (00:36)
== END 2018-11-04 00:47 | disposition home or self-care (01) ==
LOC: M ED 21:17
DX: N61.0 Mastitis without abscess (principal); Z87.891 Personal history of nicotine dependence